=== PATIENT | male | born 1965 | race Caucasian/White ===

== ENCOUNTER 2017-02-02 13:52 | Inpatient (IN) ==
--- NOTE | 2017-02-02 14:45 | Emergency Department Report ---
Dizziness HPI - General Chief Complaint: Syncope Stated Complaint: hypotension,heat exsposure Time Seen by Provider: 02/02/17 14:06 Source: patient Mode of arrival: EMS Limitations: no limitations - History of Present Illness HPI Narrative: 51-year-old male presents to the emergency department with a chief complaint of heat exposure and near syncope. 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 Patient noted earlier today after carrying the mail and sweating profusely that he had a near syncopal episode. He denies any pain or discomfort. Patient did not suffer any trauma or injury. Patient comes to the emergency department via EMS at the advice of his assistant shift supervisor. Patient notes that he has been trying to orally hydrate but has not been very successful. Patient has been working for the last several days in the heat and humidity. Patient does note that he feels better after 500 mL of normal saline intravenously given by EMS prior to arrival to the emergency department. Symptoms have been persistent in nature since onset. No other complaints or associated symptoms. Patient was hypotensive at 70 systolic prior to arrival to the emergency department today. - Related Data Home Medications Medication Instructions Recorded Confirmed Atorvastatin Calcium 20 mg PO DAILY #30 09/02/15 02/02/17 Lisinopril/Hydrochlorothiazide 1 tab PO DAILY #30 09/02/15 02/02/17 [Lisinopril-Hctz 10-12.5 mg Tab] Liothyronine [Cytomel] 5 mcg PO DAILY #0 09/04/15 02/02/17 Allergies Allergy/AdvReac Type Severity Reaction Status Date / Time Cephalosporins AdvReac Mild N/V Verified 02/02/17 14:15 Penicillins AdvReac Mild N/V Verified 02/02/17 14:15 Review of Systems Constitutional: Denies: fever, chills Eyes: Denies: eye pain, vision change ENT: Denies: ear pain, throat pain Cardiovascular: Denies: chest pain, palpitations Respiratory: Denies: cough, dyspnea Gastrointestinal: Denies: abdominal pain, nausea, vomiting, diarrhea Genitourinary: Denies: urgency, dysuria Musculoskeletal: Denies: back pain, arthralgia Integumentary: Denies: erythema, rash Neurological: Denies: headache, numbness Psychiatric: Denies: anxiety, depression Endocrine: Denies: fatigue, heat or cold intolerance Hematological/Lymphatic: Denies: easy bleeding, easy bruising Allergic/Immunologic: Denies: facial swelling, urticaria PFSH Patient Stated Medical History Other HEENT Yes: THROAT CA Hypertension Yes Surgical History: Biopsies, PEG tube, Port-A-Cath Family History: Father - brain CA - Social History Smoking status: Never smoker Physical Exam - Limitations Limitations: no limitations - General General appearance: alert, in no apparent distress - Normal Exams: Head:: Normocephalic without trauma Eyes:: Pupils are PERRLA w/ EOMI, No scleral icterus, irritation, or foreign bodies noted ENMT:: No facial trauma, nasal exudates, pharyngeal erythema, or exudates are noted Dental: No fractured, loose, or missing teeth noted Neck:: Full range of motion, without adenopathy, JVD, bruits or thyromegaly Chest/Respirations:: Clear all walls, with good airflow, and symmetry bilaterally Cardiovascular:: Regular rate and rhythm, without murmur or gallop, Pulses 2+ all extremities, capillary refill, <2 seconds all extremities Abdomen:: Bowel sounds positive, soft, non-tender, non-distended, no hepatosplenomegaly, masses or bruits noted Lymphatic:: No lymphadenopathy, or lymphedema noted Musculoskeletal:: No tenderness, or deformity noted, good range of motion, all extremities Integumentary:: No rashes, hives, or bruising noted, hair and nails, without abnormality Neurological:: Patient is alert, and oriented, cranial nerves, motor/sensory/ cerebellar, exams w/o gross deficits, to observation Psychiatric:: Patient exhibits, appropriate attention, emotion and affect Course Vital Signs Temperature 97.4 F 02/02/17 13:54 Pulse Rate 81 02/02/17 13:54 Respiratory Rate 18 02/02/17 13:54 Blood Pressure 92/51 02/02/17 13:54 Pulse Oximetry 94 02/02/17 13:54 Temperature 96.5 F L 02/02/17 16:02 Pulse Rate 70 02/02/17 16:02 Respiratory Rate 18 02/02/17 16:02 Blood Pressure 169/101 H 02/02/17 16:02 Pulse Oximetry 99 02/02/17 16:02 Dizziness - MDM Narrative Medical decision making narrative: Labs / imaging were discussed in detail with the patient and family and questions are answered. Patient is given 2 L normal saline intravenously with improvement of symptoms. Patient is discussed with cardiology ( Dr. Balderas) it service continuity supervisor and EKG is determined to be secondary to early repolarization without ST elevation MD. Patient has no chest pain or reciprocal changes noted. Patient is admitted to the service of the hospitalist Dr. Egan in improved condition. He is in agreement with the current plan of management. Patient remained pain-free during his emergency department stay. Cardiology is available for consultation as needed. No further orders from accepting or consulting physicians who were in agreement with the current plan of management. Patient is admitted to the hospital in improved condition. Leukocytosis is most likely secondary to an acute phase reactant is no sign of infection is currently noted. Differential diagnosis: Dehydration, near syncope, metabolic process, hypoglycemia - Lab Data Result diagrams: 02/02/17 14:23 02/02/17 14:23 Lab Results 02/02/17 02/02/17 Range/Units 14:23 14:23 WBC 15.7 H (4.5-11.0) T/MM3 RBC 5.38 (4.50-5.90) M/MM3 Hgb 17.0 (13.5-17.5) GM/DL Hct 48.2 (41-53) % MCV 89.6 (80-100) UM3 MCH 31.6 (26-34) UUG MCHC 35.3 (31-37) GM/DL RDW Std Deviation 44.4 (36.9-50.2) FL Plt Count 271 (130-400) T/MM3 MPV 10.6 (9.4-12.4) UM3 Immature Gran % (Auto) Not performed Neut % (Auto) Not performed Lymph % (Auto) Not performed [place] % (Auto) Not performed Eos % (Auto) Not performed Baso % (Auto) Not performed Neut # Not performed Lymph # Not performed [place] # Not performed Eos # Not performed Baso # Not performed Abs Immat Gran (auto) Not performed Neutrophils % (Manual) 94.0 H (33-66) % Band Neutrophils % 2.0 (0-6) % Lymphocytes % (Manual) 3.0 L (23-45) % Monocytes % (Manual) 1.0 (0-9.0) % Neutrophils # (Manual) 14.8 H (1.8-7.7) T/MM3 Band Neutrophils # 0.3 T/MM3 Lymphocytes # (Manual) 0.5 L (1-4.8) T/MM3 Monocytes # (Manual) 0.2 (0-0.8) T/MM3 RBC Morph Comment Normal Turbidity < 20 (0-20) Sodium 137 (134-144) MEQ/L Potassium 3.9 (3.6-5) MEQ/L Chloride 91 L (98-107) MEQ/L Carbon Dioxide 21 L (22-30) MEQ/L Anion Gap 25 H (5-15) MEQ/L BUN 56.0 H* (9-20) MG/DL Creatinine 5.6 H (0.8-1.5) MG/DL GFR Calculation 11 BUN/Creatinine Ratio 10 (6-26) RATIO Glucose 115 H (75-110) MG/DL Calculated Osmolality 281 H (261-280) MOSM/KG Calcium 11.5 H (8.4-10.2) MG/DL Total Bilirubin 2.00 H (0.20-1.30) MG/DL Icterus Index < 2 (0-7) AST 78 H (17-59) U/L ALT 54 (21-72) U/L Alkaline Phosphatase 98 (38-126) U/L Creatine Kinase 3735 H (55-170) U/L Troponin I 0.036 (0-0.12) ng/ml Total Protein 9.1 H (6.3-8.2) G/DL Albumin 5.7 H (3.5-5.0) G/DL Globulin 3.4 (2.4-3.6) G/DL Albumin/Globulin Ratio 1.7 (1.1-2.2) RATIO Specimen Hemolysis < 15 (0-25) - Radiology Data CXR - Negative. - EKG Data EKG #1 EKG results narrative: Sinus rhythm. 82 bpm. No STEMI. EKG reviewed with Dr. Balderas. (No CP, No reciprocal changes, findings consistent with early repolarization) Disposition Clinical Impression: Dehydration, Near syncope Acute renal failure Qualifiers: Acute renal failure type: unspecified Qualified Code(s): N17.9 - Acute kidney failure, unspecified Disposition: 02 To [facility] Acute Care Condition: Improved Time of Disposition: 15:15 (Admit. Dr. Egan. ) - Seen By: physician
[2017-02-02] MEDS ORDERED: NS 1,000 ML IV ONE ×2 (15:04→15:44)
[2017-02-02] MEDS: SALINE FLUSH 10ml SYRINGE IVF PRN ×2 (15:07→16:14)
--- NOTE | 2017-02-02 15:10 | XRay Report ---
Indication: Near syncope, heat exhaustion. PROCEDURE: XR chest 1V: Encounter: Initial Comparison: None FINDINGS: The lungs are clear. There is no abnormal airspace opacity, pleural effusion or pneumothorax identified. The heart size, pulmonary vasculature and mediastinum are within normal limits. IMPRESSION: No acute cardiopulmonary abnormality. .
[2017-02-02] MEDS ORDERED: ONDANSETRON 4 MG/2 ML INJECTION IVP PRN (16:11)
[2017-02-02] MEDS ORDERED: ACETAMINOPHEN 500 MG TABLET PO PRN (16:13)
[2017-02-02] MEDS ORDERED: POLYETHYL GLYCOL 3350 17gm PACKET PO PRN (16:13)
[2017-02-02 16:15] VITALS: BMI 31.6
--- NOTE | 2017-02-02 16:25 | History & Physical Report ---
<Shirley Ac V - Last Filed: 02/02/17 16:22> History of Present Illness Date: 02/02/17 Chief complaint: weakness, dizziness, cramping HPI: Watson is a very pleasant 51-year-old gentleman who recently started working with [employer]. 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 Today he reports he was out walking and started having blurred vision, accompanied with cramps all over his body including legs, fingers, arms, and abdomen. He has been drinking significant amount of Gatorade and water. However, feels that he is dehydrated. Due to the severity of his symptoms. He presented to the emergency room today for further evaluation and treatment. He was found to have leukocytosis with white count 15.7, hemoglobin 17, hematocrit 48.2, platelet count 271, neutrophils 24% with 2% bands. Sodium was found to be 137, potassium 3.9, anion gap 25. Renal function was found be significantly elevated with a BUN of 56 and creatinine of 5.6, GFR is 11. Calculated osmolality 281, calcium 11.2, and total bilirubin 2.0. AST is elevated at 78. CK is elevated at 3735. He found to be hypotensive at 92/51. He was given IV fluids, however, due to the severity of his renal function and dehydration. The hospitalist services were contacted and accepted patient for inpatient admission for further evaluation and treatment. 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 Tonsillectomy. G-tube placement and removal -2007 related to throat cancer - Social History Smoking status: Never smoker Substance use type: does not use Alcohol intake frequency: does not drink Household members: spouse Current occupation: [employer] Current occupational exposures/hazards: Yes (heat) Does patient use chewing tobacco?: No Current residence: Apartment/Private Home Social history: Primary care provider, Dr. Bianchi Medications Home Medications Medication Instructions Recorded Confirmed Type Atorvastatin Calcium 20 mg PO DAILY #30 09/02/15 02/02/17 History Lisinopril/Hydrochlorothiazide 1 tab PO DAILY #30 09/02/15 02/02/17 History [Lisinopril-Hctz 10-12.5 mg Tab] Liothyronine [Cytomel] 5 mcg PO DAILY #0 09/04/15 02/02/17 History Allergies Allergy/AdvReac Type Severity Reaction Status Date / Time Cephalosporins AdvReac Mild N/V Verified 02/02/17 14:15 Penicillins AdvReac Mild N/V Verified 02/02/17 14:15 Exam Vital Signs: Temperature 96.5 F L 02/02/17 16:02 Pulse Rate 70 02/02/17 16:02 Respiratory Rate 18 02/02/17 16:02 Blood Pressure 169/101 H 02/02/17 16:02 Pulse Oximetry 99 02/02/17 16:02 Oxygen Delivery Method Room Air Height: 1.75 m Weight: 97 kg Body Mass Index: 31.6 - Constitutional Present: no acute distress, mild distress - Routine HEENT Exam Head: Present: normocephalic, atraumatic Eye: Present: EOMI, PERRL ENT: Present: mucous membranes moist - Routine Neck Exam Present: supple, full ROM - Routine Respiratory Exam Present: CTA bilaterally - Routine Cardiovascular Exam Present: RRR, S1, S2 - Routine Abdominal Exam Present: soft, normoactive bowel sounds, non distended, non tender - Routine Extremities Exam Present: no edema, normal capillary refill - Routine Back/Spine/Pelvis Exam Back/Spine: Present: full ROM - Routine Skin Exam Present: intact, dry, warm - Routine Neurological Exam Present: alert, oriented X3, CN II-XII intact, normal reflexes, moving all extremities - Routine Psychiatric Exam Present: normal affect, normal thought process Results - Labs CBC & Chem 7: 02/02/17 14:23 02/02/17 14:23 Assessment and Plan (1) Acute kidney injury Current visit: Yes Status: Acute (2) Dehydration Current visit: Yes Status: Acute (3) Leukocytosis Current visit: Yes Status: Acute (4) Hypertension Current visit: Yes Status: Acute (5) Hyperlipidemia Current visit: Yes Status: Acute (6) History of non-Hodgkin's lymphoma Current visit: Yes Status: Acute (7) History of throat cancer Current visit: Yes Status: Acute Assessment and Plan: Admit patient to inpatient status under care of Dr. Peña for acute kidney injury, dehydration and leukocytosis Patient did receive 1 liter of normal saline while in the emergency room. Will repeat this with a 2nd liter of IV fluids. We will then switch to D5W with 150 milliequivalents of sodium at 125 an hour. We will recheck a CK and BMP this evening at 1932. Follow electrolytes carefully. Urinalysis is also pending on admission. Given severity of acute creatinine increased. Will obtain a renal sonogram to rule out underlying etiology. Lindsay catheter to dependent drainage to monitor I's and O's carefully. We'll place patient on a renal diet with 2 gram sodium restriction. Patient's hypertension medication lisinopril/HCTZ. Will need to be on hold given the creatinine. Will monitor blood pressure carefully. May need to another agent if blood pressure does elevate. Patient may have Tylenol as needed for pain and cramps. Zofran as needed for nausea SCDs to bilateral lower extremity for DVT prophylaxis Will continue to follow renal function and electrolytes carefully. During his stay on the medical unit. Will discuss further orders and plan of care with attending, Dr. Peña. At time of discharge medical care will return to primary care provider Dr Bianchi [facility] Course Summary Disclaimer: The visit summary below is not to be considered part of the above Progress Note. <Hector Peña - Last Filed: 02/02/17 18:50> History of Present Illness Date: 02/02/17 [facility] Patient Stated Medical History Other HEENT Yes: THROAT CA Hypertension Yes Hx Renal Disease No Chemotherapy Yes Exam Vital Signs: Temperature 96.5 F L 02/02/17 16:02 Pulse Rate 64 02/02/17 16:26 Respiratory Rate 18 02/02/17 16:02 Blood Pressure 135/82 02/02/17 16:26 Pulse Oximetry 99 02/02/17 16:02 Oxygen Delivery Method Room Air Height: 1.75 m Weight: 97 kg Results - Labs CBC & Chem 7: 02/02/17 14:23 02/02/17 14:23 Assessment and Plan (1) Acute kidney injury Current visit: Yes Status: Acute (2) Dehydration Current visit: Yes Status: Acute (3) Leukocytosis Current visit: Yes Status: Acute 02/02/17 18:37 Suspect stress reaction. (4) Hypercalcemia Problem details: POA Current visit: Yes Status: Acute (5) Hyperphosphatemia Problem details: POA Current visit: Yes Status: Acute (6) Elevated CPK Problem details: POA - secondary to MORGAN and increase exercise. Current visit : Yes Status: Acute (7) Hypertension Current visit: Yes Status: Chronic (8) Hyperlipidemia Current visit: Yes Status: Chronic (9) History of non-Hodgkin's lymphoma Current visit: Yes Status: Resolved (10) History of throat cancer Current visit: Yes Status: Resolved DVT Prophylaxis: SCD's Resuscitation Status: Full Code Assessment and Plan: Have independently interviewed and examined pt. Chart reviewed. Case discussed with ED physician, pt and his , and my [employer]. Care plan developed with my supervision; agree with above. 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 This level of activity in much more than his prior vocation. Has been very diligent about fluid intake to maintain hydration-reports trying to get plenty of water and sport drink in as he has been sweating profusely at work. About 2 days ago, noted his urine output was decreasing. Today, started having severe muscle cramps and weakness. Coworkers advised ED visit for evaluation. Denies SOA, cough or congestion. No chest pressure, pain, or palpitations. No n/ v or diarrhea. In ED, creatinine found to be significantly elevated. BP low in route via EMS; systolic BP in the 70's-IVF initiated. Does take lisinopril for BP - has never had problems with this in the past. Lungs: clear CV: regular AB: soft nt/nd +BS EXT: no edema MSE: awake alert, thoughts linear, converses well. Plan: Inpatient admission due to MORGAN from dehydration exacerbated by ADITYA use- anticipate greater than 2 midnights of care needed. Aggressive IVF given due to hypotension-BP improving by time he left ED. Will continue IVF of D5W with 3amps Bicarb due to elevated CPK. Hold ADITYA due to MORGAN and hold statin due to elevated CPK. Monitor lab closely-will repeat BMP and CPK this evening. Tele to monitor for cardiac arrhythmias. SCD for DVT prevention. Renal sono to assess kidney size and exclude hydronephrosis. Lindsay ordered, but pt declined-was able to produce urine and bladder scan showed no residual; continue to monitor bladder scan to make sure there is no urinary retention. Discussed with pt and his about MORGAN and treatments as well as anticipated hospital course. Care to return to Dr Bianchi at time of discharge from [facility]. Hospital Course Summary Disclaimer: The visit summary below is not to be considered part of the above Progress Note.
[2017-02-02] MEDS: SODIUM BICARBONATE 150 MEQ in D5W 1,000 ML IV SCH (18:53)
[2017-02-03] MEDS: SODIUM BICARBONATE 150 MEQ in D5W 1,000 ML IV SCH ×2 (03:50→13:37)
--- NOTE | 2017-02-03 08:41 | Ultrasound Report ---
Indication: Acute kidney injury PROCEDURE: US renal BI: Encounter: Initial Comparison: None Technique: Grayscale and color Doppler sonographic imaging of both kidneys was performed. FINDINGS: Both kidneys are present with normal cortical thickness and echogenicity. No evidence for collecting system dilatation, contour deforming mass, nephrolithiasis, or abnormal perinephric fluid collection. The right kidney measures 11.3 cm in length, and the left kidney measures 11.8 cm in length. IMPRESSION: Normal renal sonogram. .
--- NOTE | 2017-02-03 09:02 | Progress Note ---
Subjective: F/U: MORGAN, Dehydration Doing much better today. Not having cramps or weakness to ext. Urinating well ( report about every 3 hours); no problems with urination. Notes slight cough, but not feeling soa or congested. No chest pressure or pain. Denies nausea or ab pain. Objective Vital signs: Temperature 96.2 F L 02/03/17 07:23 Pulse Rate 78 02/03/17 07:23 Respiratory Rate 20 02/03/17 07:23 Blood Pressure 119/75 02/03/17 07:23 Pulse Oximetry 94 02/03/17 07:23 Oxygen Delivery Method Room Air Weight: 79 kg - Constitutional Present: no acute distress, well nourished, well developed, cooperative - Routine HEENT Exam Head: Present: normocephalic, atraumatic Eye: Present: EOMI, PERRL. Absent: conjunctival icterus ENT: Present: mucous membranes moist - Routine Respiratory Exam Present: CTA bilaterally. Absent: respiratory distress, wheezes, crackles - Routine Cardiovascular Exam Present: RRR, S1, S2, no murmur - Routine Abdominal Exam Present: soft, normoactive bowel sounds, non distended, non tender. Absent: rebound - Routine Extremities Exam Present: no edema, pulses intact (Strong DP pulses bilaterally). Absent: cyanosis, clubbing - Routine Skin Exam Present: intact, warm, normal turgor. Absent: mottling - Routine Neurological Exam Present: alert, oriented X3, CN II-XII intact, vision grossly intact, hearing grossly intact. Absent: motor deficit - Routine Psychiatric Exam Present: normal affect, normal thought process, cooperative, good insight, good judgment. Absent: anxious, agitated Results - Labs CBC & Chem 7: 02/03/17 04:29 02/03/17 14:05 Labs: Laboratory Tests 02/02/17 02/02/17 02/02/17 14:23 14:23 19:25 Phosphorus 5.4 H AST ALT Creatine Kinase 3735 H 3154 H 02/03/17 04:29 Phosphorus 3.3 AST 66 H ALT 49 Creatine Kinase 2860 H Assessment and Plan (1) Acute kidney injury Current visit: Yes Status: Acute (2) Dehydration Current visit: Yes Status: Resolved (3) Leukocytosis Current visit: Yes Status: Acute 02/02/17 18:37 Suspect stress reaction. (4) Hypercalcemia Problem details: POA Current visit: Yes Status: Resolved (5) Hyperphosphatemia Problem details: POA Current visit: Yes Status: Resolved (6) Elevated CPK Problem details: POA - secondary to MORGAN and increase exercise. Current visit : Yes Status: Acute (7) Hypertension Current visit: Yes Status: Chronic (8) Hyperlipidemia Current visit: Yes Status: Chronic (9) History of non-Hodgkin's lymphoma Current visit: Yes Status: Resolved (10) History of throat cancer Current visit: Yes Status: Resolved (11) Hypokalemia Problem details: Not POA Current visit: Yes Status: Acute DVT Prophylaxis: SCD's Resuscitation Status: Full Code Assessment and Plan: Medically improving. Creatinine decreased to 2.4. Calcium normalized. CKP trending downward. Pt is urinating well. Renal sono normal. Decrease IVF of D5W with 3 amps of sodium bicarb to 100cc/hr - renal status improving and CPK decreasing. Oral potassium 20mEg this am and at lunch. Encourage ambulation. Continue to hold statin and ADITYA due to resolving elevated CPK and MORGAN. BP stable currently - monitor for need of medication. Discussed lab and sono results with pt. Will recheck BMP and CPK this afternoon. Time spent with pt care 25 minutes. Sepsis Assessment - Evaluation Sepsis screening result: No Definite Risk Hospital Course Summary Disclaimer: The visit summary below is not to be considered part of the above Progress Note. Hospital Course: 02/02 Admit patient to inpatient status under care of Dr. Peña for acute kidney injury, dehydration and leukocytosis Patient did receive 1 liter of normal saline while in the emergency room. Will repeat this with a 2nd liter of IV fluids. We will then switch to D5W with 150 milliequivalents of sodium at 125 an hour. We will recheck a CK and BMP this evening at 1932. Follow electrolytes carefully. Urinalysis is also pending on admission. Given severity of acute creatinine increased. Will obtain a renal sonogram to rule out underlying etiology. Lindsay catheter to dependent drainage to monitor I's and O's carefully. Pt did refuse Lindsay - urinating well and bladder scan showing no retention. We'll place patient on a renal diet with 2 gram sodium restriction. Patient's hypertension medication lisinopril/HCTZ. Will need to be on hold given the creatinine. Will monitor blood pressure carefully. May need to another agent if blood pressure does elevate. Patient may have Tylenol as needed for pain and cramps. Zofran as needed for nausea SCDs to bilateral lower extremity for DVT prophylaxis Will continue to follow renal function and electrolytes carefully. During his stay on the medical unit. At time of discharge medical care will return to primary care provider Dr Bianchi 02/03 Medically improving. Creatinine decreased to 2.4. Calcium normalized. CKP trending downward. Pt is urinating well. Renal sono normal. Decrease IVF of D5W with 3 amps of sodium bicarb to 100cc/hr - renal status improving and CPK decreasing. Oral potassium 20mEg this am and at lunch. Encourage ambulation. Continue to hold statin and ADITYA due to resolving elevated CPK and MORGAN. BP stable currently - monitor for need of medication. Discussed lab and sono results with pt. Will recheck BMP and CPK this afternoon.
[2017-02-03] MEDS: LIOTHYRONINE 5 MCG TABLET PO SCH (09:42)
[2017-02-03] MEDS ORDERED: SODIUM BICARBONATE 100 MEQ in D5W 1,000 ML IV SCH (14:30)
[2017-02-03] MEDS ORDERED: MAGNESIUM OXIDE 400 MG TABLET PO ONE (17:30)
[2017-02-04] MEDS: SODIUM BICARBONATE 150 MEQ in D5W 1,000 ML IV SCH ×2 (00:04→03:08)
[2017-02-04 08:02] VITALS: BP 146/91; RESP 20; TEMP 95.9; O2SAT 96
[2017-02-04] MEDS: LIOTHYRONINE 5 MCG TABLET PO SCH (10:08)
--- NOTE | 2017-02-04 10:55 | Discharge Instructions ---
Discharge Plan - Med Rec/Dispo Referrals/Follow Up: Tamika Bianchi MD [Family Provider] - (Please schedule follow up apt for 1 week. Will need CMP and CK at that time.) Janine Instructions: Dehydration (GEN) Prescriptions: New PEG 3350 17gm PACKET [Miralax] 17 gm PO DAILY PRN packet PRN Reason: Constipation Continue Liothyronine [Cytomel] 5 mcg PO DAILY #0 Discontinued Atorvastatin Calcium 20 mg PO DAILY #30 Lisinopril/Hydrochlorothiazide [Lisinopril-Hctz 10-12.5 mg Tab] 1 tab PO DAILY #30 Discharge Instructions/Outpatient Orders: Final Provider Discharge Instructions Location: Determined By Patient - Disposition 01 Discharged Home, Self-Care
--- NOTE | 2017-02-04 11:20 | Discharge Summary ---
<Shirley Ac V - Last Filed: 02/04/17 11:07> Discharge Information Date of admission: 02/02/17 15:57 Attending Physician: Hector Peña MD Primary care physician: Tamika Bianchi MD - Discharge Diagnosis (1) Acute kidney injury Status: Acute (2) Dehydration Status: Resolved (3) Leukocytosis Status: Acute (4) Hypertension Status: Chronic (5) Hyperlipidemia Status: Chronic (6) History of non-Hodgkin's lymphoma Status: Resolved (7) History of throat cancer Status: Resolved (8) Hypercalcemia Problem Details: POA Status: Resolved (9) Hyperphosphatemia Problem Details: POA Status: Resolved (10) Elevated CPK Problem Details: POA - secondary to MORGAN and increase exercise. Status: Acute (11) Hypokalemia Problem Details: Not POA Status: Acute - Laboratory Labs: 02/04/17 05:05 02/04/17 06:11 - Microbiology None - Radiology Radiology: 02/02- Chest Xray- No acute cardiopulmonary findings 02/02- Renal Sonogram- FINDINGS: Both kidneys are present with normal cortical thickness and echogenicity. No evidence for collecting system dilatation, contour deforming mass, nephrolithiasis, or abnormal perinephric fluid collection. The right kidney measures 11.3 cm in length, and the left kidney measures 11.8 cm in length. IMPRESSION: Normal renal sonogram. - Pathology None History of Present Illness HPI: Watson is a very pleasant 51-year-old gentleman who recently started working with [employer]. 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 Today he reports he was out walking and started having blurred vision, accompanied with cramps all over his body including legs, fingers, arms, and abdomen. He has been drinking significant amount of Gatorade and water. However, feels that he is dehydrated. Due to the severity of his symptoms. He presented to the emergency room today for further evaluation and treatment. He was found to have leukocytosis with white count 15.7, hemoglobin 17, hematocrit 48.2, platelet count 271, neutrophils 24% with 2% bands. Sodium was found to be 137, potassium 3.9, anion gap 25. Renal function was found be significantly elevated with a BUN of 56 and creatinine of 5.6, GFR is 11. Calculated osmolality 281, calcium 11.2, and total bilirubin 2.0. AST is elevated at 78. CK is elevated at 3735. He found to be hypotensive at 92/51. He was given IV fluids, however, due to the severity of his renal function and dehydration. The hospitalist services were contacted and accepted patient for inpatient admission for further evaluation and treatment. Objective Vital signs: Temperature 95.9 F L 02/04/17 08:00 Pulse Rate 71 02/04/17 08:00 Respiratory Rate 20 02/04/17 08:00 Blood Pressure 146/91 H 02/04/17 08:00 Pulse Oximetry 96 02/04/17 08:00 Oxygen Delivery Method Room Air Weight: 96.9 kg Hospital Course This is a general summary of the patient's hospital course. For more details refer to the complete medical record. Hospital course: 02/02 Admit patient to inpatient status under care of Dr. Peña for acute kidney injury, dehydration and leukocytosis Patient did receive 1 liter of normal saline while in the emergency room. Will repeat this with a 2nd liter of IV fluids. We will then switch to D5W with 150 milliequivalents of sodium at 125 an hour. We will recheck a CK and BMP this evening at 1932. Follow electrolytes carefully. Urinalysis is also pending on admission. Given severity of acute creatinine increased. Will obtain a renal sonogram to rule out underlying etiology. Lindsay catheter to dependent drainage to monitor I's and O's carefully. Pt did refuse Lindsay - urinating well and bladder scan showing no retention. We'll place patient on a renal diet with 2 gram sodium restriction. Patient's hypertension medication lisinopril/HCTZ. Will need to be on hold given the creatinine. Will monitor blood pressure carefully. May need to another agent if blood pressure does elevate. Patient may have Tylenol as needed for pain and cramps. Zofran as needed for nausea SCDs to bilateral lower extremity for DVT prophylaxis Will continue to follow renal function and electrolytes carefully. During his stay on the medical unit. At time of discharge medical care will return to primary care provider Dr Bianchi 02/03 Medically improving. Creatinine decreased to 2.4. Calcium normalized. CKP trending downward. Pt is urinating well. Renal sono normal. Decrease IVF of D5W with 3 amps of sodium bicarb to 100cc/hr - renal status improving and CPK decreasing. Oral potassium 20mEg this am and at lunch. Encourage ambulation. Continue to hold statin and ADITYA due to resolving elevated CPK and MORGAN. BP stable currently - monitor for need of medication. Discussed lab and sono results with pt. Will recheck BMP and CPK this afternoon. 02/04/17- Discharge Watson is doing good today and ready for discharge. His renal function has returned to normal and CK and LFTs continue to trend down. Will continue to hold his blood pressure medicine, lisinopril/HCTZ as well as his cholesterol medication Atorvastatin until follow-up with Dr. Bianchi in one week. At that time he will also need a CMP and CK serum lab draws. Did speak with Dr. Huang production supv for Dr. Bianchi to review hospitalization, medication changes and need for follow-up. Reviewed importance of hydration while out in the heat during the summer. Above is a brief summary of hospitalization course. For a more detailed document , please refer to each detailed record. Total discharge time greater than 35 minutes. Time spent with patient: Greater than 35 minutes DVT Prophylaxis: SCD's Discharge Plan - Med Rec/Dispo Referrals/Follow Up: Tamika Bianchi MD [Family Provider] - (Please schedule follow up apt for 1 week. Will need CMP and CK at that time. APPOITMENT 02/10 AT 4:30. GET LABS DRAWN IN AM.) Truven Instructions: Dehydration (GEN) Prescriptions: New PEG 3350 17gm PACKET [Miralax] 17 gm PO DAILY PRN packet PRN Reason: Constipation Continue Liothyronine [Cytomel] 5 mcg PO DAILY #0 Discontinued Atorvastatin Calcium 20 mg PO DAILY #30 Lisinopril/Hydrochlorothiazide [Lisinopril-Hctz 10-12.5 mg Tab] 1 tab PO DAILY #30 Discharge Instructions/Outpatient Orders: Final Provider Discharge Instructions Location: Determined By Patient - Disposition 01 Discharged Home, Self-Care <Hector Peña - Last Filed: 02/04/17 13:38> Discharge Information Date of admission: 02/02/17 15:57 Attending Physician: Hector Peña MD Primary care physician: Tamika Bianchi MD - Discharge Diagnosis (1) Acute kidney injury Status: Acute (2) Dehydration Status: Resolved (3) Leukocytosis Status: Acute (4) Hypercalcemia Problem Details: POA Status: Resolved (5) Hyperphosphatemia Problem Details: POA Status: Resolved (6) Elevated CPK Problem Details: POA - secondary to MORGAN and increase exercise. Status: Acute (7) Hypertension Status: Chronic (8) Hyperlipidemia Status: Chronic (9) History of non-Hodgkin's lymphoma Status: Resolved (10) History of throat cancer Status: Resolved (11) Hypokalemia Problem Details: Not POA Status: Acute - Laboratory Labs: 02/04/17 05:05 02/04/17 06:11 Objective Vital signs: Temperature 95.9 F L 02/04/17 08:00 Pulse Rate 71 02/04/17 08:00 Respiratory Rate 20 02/04/17 08:00 Blood Pressure 146/91 H 02/04/17 08:00 Pulse Oximetry 96 02/04/17 08:00 Oxygen Delivery Method Room Air Hospital Course This is a general summary of the patient's hospital course. For more details refer to the complete medical record. Discharge Plan - Med Rec/Dispo - Attestation Attestation Narrative: 02/04/17 13:33 Have independently interviewed and examined pt. Chart reviewed. Case discussed with pt, his , and my [employer] MANAGER. Care plan developed with my supervision; agree with above. Doing very well today. Eating and drinking well. No nausea or ab pain. Urinating without difficulty. No f/c. Ambulating well. Breathing stable. Lungs: clear bilaterally. No crackles, wheezes or distress CV: regular AB: soft nt/nd +BS Ext: no edema MSE; awake alert appropriate Plan: Will d/c to home-medically stable. MORGAN resolved. Encourage good hydration- keep drinking water/sport drink when working; do not wait to feel thirsty before drinking. Make sure to drink enough water to keep urinating. 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 Hold ADITYA and statin. F/U with PCP in 1 week - recheck CMP and CPK at that time. Monitor BP in outpatient setting. Care plan discussed with pt and his and they voiced agreement and understanding. Time spent with pt care and discharge greater than 35 minutes. See orders for details.
[2017-02-04] MEDS ORDERED: NEOMYCIN/POLYMYXIN/BACITRACIN OINT PACKET TP PRN (12:29)
[2017-02-04 14:47] VITALS: PULSE 70
== END 2017-02-04 13:20 | disposition home or self-care (01) | DRG 684 ==
LOC: ED 13:52 → MED 15:57
PROVIDERS: ADMIT Hospitalist; ATTEND Hospitalist